=== PATIENT | female | born 1935 | race Caucasian/White ===

== ENCOUNTER 2018-02-16 07:40 | Emergency (ER) | payer MEDICARE, SELFPAY ==
[2018-02-16] VITALS (7 sets, daily range): BP systolic 114–149; BP diastolic 59–94; PULSE 58–78; RESP 12–18; TEMP 36.8; O2SAT 98–100; BMI 23.6
--- NOTE | 2018-02-16 07:44 | NURSING ---
NO OLD EKGS
--- NOTE | 2018-02-16 08:05 | EKG12_ITS ---
Test Reason : CP Blood Pressure : / mmHG Vent. Rate : 071 BPM Atrial Rate : 071 BPM P-R Int : 202 ms QRS Dur : 086 ms QT Int : 376 ms P-R-T Axes : 070 033 061 degrees QTc Int : 408 ms Normal sinus rhythm Normal ECG Confirmed by SHERRI COLLINS, GERALD ([id number]), primer expeditor and drier PRECIOUS MORALES ([id number]) on 02/18/2018 1:04:53 PM Referred By: PAUL Confirmed By:GERALD POLANCO MD
--- NOTE | 2018-02-16 08:05 | RAD_ITS ---
STUDY: X-RAY CHEST REASON FOR EXAM: Female, 82 years old. Chest pain TECHNIQUE: Frontal and lateral views of the chest. COMPARISON: None. FINDINGS: The lungs are clear and expanded. There is no demonstrated pleural abnormality. Normal size heart. Normal mediastinum and mariangel. Normal visualized pulmonary arteries. Normal visualized aortic arch and descending thoracic aorta. Normal visualized thoracic spine. Normal visualized ribs, clavicles, and shoulders. There is no demonstrated abnormality of the visualized soft tissue structures of the upper abdomen. RAD/Chest PA and Lateral IMPRESSION: No acute cardiopulmonary disease. Electronically Signed: Deon Dickinson DO at 8:35 EDT , Service support ,
[2018-02-16 08:12] LABS: Absolute Neutrophil Count 2.2 X10^3/uL (2.0-7.7); Basophil# 0.01 X10^3/uL; Basophil% 0.3 % (0-1); Eosinophil# 0.09 X10^3/uL; Eosinophils% 2.9 % (0-5); Hematocrit 32.9 % (37-47); Lymphocyte % 19.2 % (19-41); Mean Corp Hgb Conc 33.4 g/gl (32-36); Mean Corpuscular Hgb 32.6 pg (27.0-32.0); Mean Corpuscular Volume 97.6 fL (81-99); Mean Platelet Vol. 9.1 fl (6.2-12.0); Monocyte# 0.25 X10^3/uL; Neutrophil # 2.16 X10^3/uL (2.7-7.7); Neutrophil % 69.3 % (47-70); Platelet Count 180 K/mm3 (150-450); RBC Distribution Width CV 12.4 % (11.6-14.6); RBC Distribution Width SD 42.4 fl (35.1-43.9); Red Blood Count 3.37 M/mm3 (4.2-5.4); White Blood Count 3.1 K/mm3 (4.4-11.0)
[2018-02-16] MEDS: Ketorolac 15 MG/ML Vial IV (08:13)
--- NOTE | 2018-02-16 08:18 | ED.DCSUM_ITS ---
- ER Visit Summary Date of Service: 02/16/18 Chief Complaint: Chest pain History of Present Illness: The patient is a 82 F who states that she recently came from [place] to visit here in [place]. She states that she had been doing well until she woke up this morning. At that time she noticed an ache on the left side of her chest going around the mid axillary region into the back. It is a squeezing sometimes sharp pain sometimes aching. Denies any shortness of breath. She took 4 baby aspirins and states it was waxing and waning eventually she came to the emergency department. She states she has no known cardiac history does note a history of hypertension. Physical Examination: Afebrile vital signs are stable Gen: Well-nourished well-developed Head: Normocephalic atraumatic Eyes: Perrl EOMI ENT: TMs clear no rhinorrhea moist mucous membranes Neck: Supple no lymphadenopathy no JVD nontender CVS: Regular rate rhythm no murmurs normal S1-S2 Respiratory: No distress clear to auscultation bilaterally tender palpation left anterior chest and associated rib area on the back Abdomen: Soft nontender nondistended normal bowel sounds no masses Back: Nontender Extremity: Nontender no edema Skin: Normal color no rash Neuro: alert orientated ?3 CN II-XII intact normal strength sensation reflexes gait cerebellar Psych: Normal affect normal mood Test Results: Normal sinus rhythm at a rate of 71 without ectopy. CBC and chemistries were negative. Initial troponin and 3 hour troponin were also negative. Chest x-ray negative. Emergency Department Course and Treatment: Patient received Toradol with resolution of symptoms. She has been resting comfortably. I believe this to be chest wall related. She will return if worsening or concerns otherwise supportive care at home. KEITH score is 1. Impression: 1. Chest pain This note was generated with [employer] dictation software. It may contain incorrect words, spelling, and punctuation that were not noted in review of the chart prior to signing ED Disposition - Plan for ED Patient: Disposition: Home or Assisted Living Chief Complaint: Chest Pain Instructions: ED Chest Pain Atypical Unkn Cause Additional Instructions: Return if worsening or concerns Follow-up with primary care back home.
[2018-02-16 08:22] LABS: Differential Indicated SCAN CRITERIA MET; POSITIVE COUNT NO; POSITIVE DIFFERENTIAL YES; POSITIVE MORPHOLOGY NO
[2018-02-16 08:23] LABS: Anion Gap 8 (5-15); BUN 30 mg/dL (7-18); BUN/Creat Ratio 30.9 RATIO (10-20); Calcium,Total 9.7 mg/dL (8.5-10.1); Chloride 113 mmol/L (98-107); Creatinine, Serum 0.97 mg/dL (0.55-1.02); EST Glomerular Filtration Rate 59 mL/min (>60); Est Glom Filt Rate - Afr Amer 71 mL/min (>60); Estimated Creatinine Clearance 37.63 ml/min; Glucose 91 mg/dL (74-106); Potassium 4.5 mmol/L (3.5-5.1); Sodium Level 145 mmol/L (136-145)
== END 2018-02-16 11:42 | disposition home or self-care (01) ==
PROVIDERS: Emergency Provider Emergency Medicine
DX: R07.9 Chest pain, unspecified (principal); M54.9 Dorsalgia, unspecified; I10 Essential (primary) hypertension; K21.9 Gastro-esophageal reflux disease without esophagitis; F41.9 Anxiety disorder, unspecified
CPT/HCPCS: 71046; 80048; 84484; 85025; 93005; 96374; 99285; A4216